=== PATIENT | female | born 1980 | race Caucasian/White ===

== ENCOUNTER → 2018-10-14 | Outpatient (CLI) | payer OTHER ==
--- NOTE | 2018-10-14 14:43 | US ---
EXAMINATION TYPE: US transvaginal DATE OF EXAM: 10/14/2018 COMPARISON: NONE CLINICAL HISTORY: Z97.5 Presence of (intrauterine device placement; ID placed 3 years ago; ; elizabeth ent has intermittent left pelvic pain, yesterday had right pelvic pain; left oophorectomy; C section x 2, no menses with IUD per patient; patient stated her physician could not locate string of IUD TECHNIQUE: TV US; Transvaginal sonographic images were medically necessary to better assess the fol lowing anatomy: IUD placement; patient's bladder not full and patient consented to TV US. Date of LMP: unknown with IUD EXAM MEASUREMENTS: Uterus: 7.4 x 5.5 x 3.2 cm Endometrial Stripe: 0.5 cm Right Ovary: 2.1 x 1.4 x 1.3 cm Left Ovary: surgically removed 1. Uterus: Anteverted 2. Endometrium: IUD appears within the lower uterine segment and cervix 3. Right Ovary: multiple follicles with largest follicular cyst =1.2 x 0.8 x 0.6cm 4. Left Ovary: surgically absent Spectral, color and waveform Doppler imaging shows good arterial and venous flow within the right o vary; there is no evidence for ovarian torsion. 5. Bilateral Adnexa: wnl 6. Posterior cul-de-sac: wnl IMPRESSION: Low-lying intrauterine device within the lower uterine segment and cervix.
--- NOTE | 2018-10-14 14:59 | MM ---
Reason for exam: screening (asymptomatic). Baseline mammogram. History: Family history of breast cancer in maternal grandmother. Taking hormonal contraceptives beginning at age 18. Physical Findings: Nurse did not find any significant physical abnormalities on exam. MG Screening Mammo w CAD Bilateral CC, MLO, and XCCL view(s) were taken. The breast tissue is extremely dense which could obscure a lesion on mammography. There are curvalinear right calcifications in the right upper inner quadrant at middle depth. These results were verbally communicated with the patient and result sheet given to the patient on 10/14/18. ASSESSMENT: Incomplete: need additional imaging evaluation, BI-RAD 0 RECOMMENDATION: Special view mammogram of the right breast.
--- NOTE | 2018-10-14 15:02 | MM ---
Reason for exam: additional evaluation requested from abnormal screening. History: Family history of breast cancer in maternal grandmother. Taking hormonal contraceptives beginning at age 18. Physical Findings: Breast exam preformed at baseline screening. MG Work Up Mamm w CAD RT CC with magnification and LM with magnification view(s) were taken of the right breast. The breast tissue is extremely dense which could obscure a lesion on mammography. There are coarse curvilinear calcifications in the right upper inner quadrant at middle depth that could be secretory on CC. 6 month follow up recommended. These results were verbally communicated with the patient and result sheet given to the patient on 10/14/18. ASSESSMENT: Probably benign, BI-RAD 3 RECOMMENDATION: Follow-up diagnostic mammogram of the right breast in 6 months.
== END | disposition home or self-care (01) ==
LOC: RADUSWWP 13:15
PROVIDERS: ATTEND Obstetrics & Gynecology
DX: Z12.31 Encounter for screening mammogram for malignant neoplasm of breast (principal); R92.8 Other abnormal and inconclusive findings on diagnostic imaging of breast; R10.2 Pelvic and perineal pain; Z97.5 Presence of (intrauterine) contraceptive device
CPT/HCPCS: 76830; 77065; 77067

== ENCOUNTER → 2018-11-04 | Outpatient (CLI) | payer OTHER ==
[2018-11-04 14:25] LABS: Basophils # (A) 0.1 k/uL (0-0.2); Basophils % (A) 1 %; Eosinophils # (A) 0.1 k/uL (0-0.7); Eosinophils % (A) 1 %; HCT 44.7 % (34.0-46.0); HGB 14.1 gm/dL (11.4-16.0); Lymphocytes # (A) 1.8 k/uL (1.0-4.8); Lymphocytes % (A) 21 %; MCH 29.5 pg (25.0-35.0); MCHC 31.6 g/dL (31.0-37.0); MCV 93.3 fL (80.0-100.0); Mean Platelet Volume 7.2; Monocytes # (A) 0.5 k/uL (0-1.0); Monocytes % (A) 5 %; Neutrophils % (A) 71 %; Platelet Count 260 k/uL (150-450); RBC 4.79 m/uL (3.80-5.40); RDW 13.1 % (11.5-15.5); WBC 8.5 k/uL (3.8-10.6)
== END | disposition home or self-care (01) ==
LOC: LABPAT 13:06
PROVIDERS: ATTEND Obstetrics & Gynecology
DX: Z01.812 Encounter for preprocedural laboratory examination (principal)
CPT/HCPCS: 36415; 85025

== ENCOUNTER 2018-11-11 06:06 | Day surgery (SDC) | payer OTHER ==
[2018-11-05 11:30] VITALS: BMI 20.5
[~2018-11-11 06:06] MED LIST: ceFAZolin IN SWFI 2 GM/20 ML SYRINGE IVP ONE
[2018-11-11] MEDS ORDERED: LACTATED RINGERS 1,000 ML IV SCH (06:13)
[2018-11-11] MEDS ORDERED: DEXAMETHASONE SOD PHOSPHATE 10 MG/ML 1 ML VIAL IV ONE (06:13)
[2018-11-11] MEDS ORDERED: ONDANSETRON 4 MG/2 ML VIAL IVP ONE (06:13)
[2018-11-11] MEDS ORDERED: LIDOCAINE 1% 20 ML VIAL (10MG/ML) FOR IV START INTRADERMA PRN (06:13)
[2018-11-11] MEDS ORDERED: HYDROmorphone 0.5 MG/0.5 ML SYRINGE IVP PRN (06:13)
[2018-11-11 06:29] VITALS: RESP 16
[2018-11-11 06:47] LABS: Glucose,Whole Blood 87 mg/dL (75-99)
[2018-11-11] MEDS ORDERED: LIDOCAINE 1% INJ 10MG/ML (20 ML MDV) ONE (07:25)
[2018-11-11] MEDS ORDERED: MIDAZOLAM 2 MG/2 ML VIAL ONE (07:25)
[2018-11-11] MEDS ORDERED: PROPOFOL 10 MG/ML 20 ML VIAL IV ONE (07:25)
[2018-11-11] MEDS ORDERED: KETOROLAC 30 MG/ML 1 ML VIAL ONE (07:25)
[2018-11-11 07:58] VITALS: TEMP 97
--- NOTE | 2018-11-11 08:01 | P.OP ---
Date of Procedure: 11/11/18 Preoperative Diagnosis: Retained IUD placement of new IUD Postoperative Diagnosis: Same Procedure(s) Performed: Exam under anesthesia with IUD removal and replacement Anesthesia: DARIN Surgeon: Irineo Jones Estimated Blood Loss (ml): 1 Pathology: none sent Condition: stable Disposition: same day Operative Findings: Normal anatomy Description of Procedure: Patient was taken to the operating suite where general anesthetic was found be adequate. She was prepped and draped in the normal sterile fashion and placed in the dorsal lithotomy position. Initially a weighted speculum was inserted into the vagina and the anterior lip of the cervix was identified and grasped with a Allis clamp. Cervix was then dilated. Polyp forceps was then used to remove the IUD, it was relatively high and strings were very difficult to reach. Once it was removed however uterus was sounded to 7.5 cm and a Kyleena IUD was inserted without difficulty. Patient was then taken to recovery room following removal of instruments. Sponge, lap and needle counts were all correct 2. Patient tolerated surgery very well. She will follow me in 4 weeks for evaluation. Plan - Discharge Summary Discharge Rx Participant: Yes New Discharge Prescriptions: No Action Venlafaxine HCl [Effexor] 37.5 mg PO DAILY Multivit with Calcium,Iron,Min [Women's Multivitamin] 1 each PO DAILY Discharge Medication List Multivit with Calcium,Iron,Min [Women's Multivitamin] 1 each PO DAILY 11/06/18 [History] Venlafaxine HCl [Effexor] 37.5 mg PO DAILY 11/06/18 [History] Follow up Appointment(s)/Referral(s): Irineo Jones DO [Doctor of Osteopathic Medicine] - 4 Weeks Activity/Diet/Wound Care/Special Instructions: Limited activity today. Continue normal activities tomorrow. Call for any severe pain, heavy bleeding, high temperatures Discharge Disposition: HOME SELF-CARE
[2018-11-11 08:42] VITALS: BP 102/69
[2018-11-11 09:17] VITALS: PULSE 75
== END 2018-11-11 09:25 | disposition home or self-care (01) ==
LOC: OR 06:06
PROVIDERS: ATTEND Obstetrics & Gynecology
DX: Z30.433 Encounter for removal and reinsertion of intrauterine contraceptive device (principal); N88.2 Stricture and stenosis of cervix uteri; F17.210 Nicotine dependence, cigarettes, uncomplicated; Z79.3 Long term (current) use of hormonal contraceptives; Z79.899 Other long term (current) drug therapy
CPT/HCPCS: 81025; 58301; 58300; J2250; J1100; J2405; J2001; J1885; J2704

== ENCOUNTER → 2019-03-25 | Outpatient (CLI) | payer OTHER ==
--- NOTE | 2019-03-25 15:46 | US ---
EXAMINATION TYPE: US pelvis complete transvag DATE OF EXAM: 03/25/2019 COMPARISON: NONE CLINICAL HISTORY: N83.0 ovarian cyst lt, Z97.5 IUD placement. IUD placement hx of ovarian cysts. TECHNIQUE: Transvaginal (TV) and Transabdominal (TA) EXAM MEASUREMENTS: Uterus: 6.4 x 3.7 x 5.2 cm Endometrial Stripe: .5 cm Right Ovary: 3.1 x 1.0 x 2.1 cm Left Ovary: obscured by bowel gas. 1. Uterus: Anteverted wnl 2. Endometrium: wnl 3. Right Ovary: wnl 4. Left Ovary: Obscured by overlying bowel gas 5. Bilateral Adnexa: wnl 6. Posterior cul-de-sac: wnl IUD appears in the lower uterine uterus near cervix. The uterus is noted to be severely anteflexed on the initial transabdominal images impressing upon the superior aspect of the urinary bladder. IMPRESSION: 1. Low-lying intrauterine displace despite replacement appearing in the lower uterine segment near th e cervix. The uterus is severely anteflexed on initial transabdominal images. Acute angle may cause m alpositioning of the intrauterine device. 2. Nonvisualization of the left ovary.
== END | disposition home or self-care (01) ==
LOC: RADUSWWP 14:18
PROVIDERS: ATTEND Obstetrics & Gynecology
DX: N83.02 Follicular cyst of left ovary (principal); Z97.5 Presence of (intrauterine) contraceptive device
CPT/HCPCS: 76830; 76856

== ENCOUNTER → 2019-05-07 | Outpatient (CLI) | payer OTHER ==
--- NOTE | 2019-05-07 12:00 | MM ---
Reason for exam: follow-up at short interval from prior study. Last mammogram was performed 7 months ago. History: Family history of breast cancer in maternal grandmother. Taking hormonal contraceptives beginning at age 18. Physical Findings: Nurse did not find any significant physical abnormalities on exam. MG Diagnostic Mammo RT w CAD CC and MLO view(s) were taken of the right breast. Prior study comparison: October 14, 2018, right breast MG work up mamm w CAD RT. October 14, 2018, bilateral MG screening mammo w CAD. The breast tissue is heterogeneously dense. This may lower the sensitivity of mammography. Punctate right sided calcifications. There is no discrete abnormality. These results were verbally communicated with the patient and result sheet given to the patient on 05/07/19. ASSESSMENT: Benign, BI-RAD 2 RECOMMENDATION: Return to routine screening mammogram schedule for both breasts. Back on schedule.
== END | disposition home or self-care (01) ==
LOC: RADMAMWWP 10:35
PROVIDERS: ATTEND Obstetrics & Gynecology
DX: R92.8 Other abnormal and inconclusive findings on diagnostic imaging of breast (principal)
CPT/HCPCS: 77065

== ENCOUNTER → 2019-06-25 | Outpatient (CLI) | payer OTHER ==
[2019-06-25 13:17] LABS: Basophils # (A) 0.1 k/uL (0-0.2); Basophils % (A) 2 %; Eosinophils # (A) 0.1 k/uL (0-0.7); Eosinophils % (A) 2 %; HCT 42.1 % (34.0-46.0); Lymphocytes # (A) 1.9 k/uL (1.0-4.8); Lymphocytes % (A) 28 %; MCH 30.6 pg (25.0-35.0); MCHC 33.2 g/dL (31.0-37.0); MCV 92.3 fL (80.0-100.0); Monocytes # (A) 0.4 k/uL (0-1.0); Monocytes % (A) 6 %; Neutrophils # (A) 4.1 k/uL (1.3-7.7); Neutrophils % (A) 61 %; Platelet Count 227 k/uL (150-450); RBC 4.56 m/uL (3.80-5.40); RDW 12.3 % (11.5-15.5); WBC 6.7 k/uL (3.8-10.6)
== END | disposition home or self-care (01) ==
LOC: LABPAT 12:39
PROVIDERS: ATTEND Obstetrics & Gynecology
DX: Z01.812 Encounter for preprocedural laboratory examination (principal)
CPT/HCPCS: 85025

== ENCOUNTER 2019-06-29 06:32 | Day surgery (SDC) | payer OTHER ==
[2019-06-24 14:49] VITALS: BMI 19.9
--- NOTE | 2019-06-26 17:04 | P.HPOB ---
History of Present Illness H&P Date: 06/26/19 Chief Complaint: Dysfunctional uterine bleeding/menorrhagia Ana is a 38-year-old female with a history of very heavy vaginal bleeding and significant pain since removal of her IUD. She is scheduled for a D&C with hysteroscopy and NovaSure procedure for same. Her pain is only with her menses and she relates she passes clots with each menses which worsens the pain. Risks/benefits/alternatives to this procedure were reviewed with the patient in detail all questions were answered for her prior to proceeding to the operating room. She is taking nonsteroidal anti-inflammatories worked or offering only minimal relief. Past Medical History Additional Past Medical History / Comment(s): Hypoglycemia. History of Any Multi-Drug Resistant Organisms: None Reported Past Surgical History: Section Additional Past Surgical History / Comment(s): X2, LEFT TUBE REMOVED. Past Anesthesia/Blood Transfusion Reactions: No Reported Reaction Past Psychological History: No Psychological Hx Reported Smoking Status: Former smoker Past Alcohol Use History: None Reported Additional Past Alcohol Use History / Comment(s): SMOKED 4-5 CIGARETTES/DAY, QUIT SMOKING FOR 10 YEARS AND RESTARTED, quit again 06/17/19. Past Drug Use History: None Reported - Past Family History Mother Family Medical History: No Reported History Medications and Allergies Home Medications Medication Instructions Recorded Confirmed Type Multivit with Calcium,Iron,Min 1 each PO DAILY 11/06/18 06/24/19 History [Women's Multivitamin] Allergies Allergy/AdvReac Type Severity Reaction Status Date / Time No Known Allergies Allergy Verified 06/24/19 14:34 Exam Osteopathic Statement: *. No significant issues noted on an osteopathic structural exam other than those noted in the History and Physical/Consult. - OBG Physical Exam Breast: both: normal (no masses) Abdomen: bowel sounds normal, no diffuse tenderness, no bruit present, no guarding noted, no hepatomegaly, no splenomegaly, no mass Vulva: both: normal Vagina: normal moisture, no discharge Cervix: no lesion, no discharge Uterus: normal size, normal contour Adnexa: both: normal Anus/Rectum: normal perianal skin, no rectal mass, no hemorrhoids, heme negative
[~2019-06-29 06:32] MED LIST changes: +DEXAMETHASONE SOD PHOSPHATE 10 MG/ML 1 ML VIAL IV ONE; +HYDROmorphone 0.5 MG/0.5 ML SYRINGE IVP PRN; +LACTATED RINGERS 1,000 ML IV SCH; +LIDOCAINE 1% 20 ML VIAL (10MG/ML) FOR IV START INTRADERMA PRN; +ONDANSETRON 4 MG/2 ML VIAL IVP ONE; +Pre Op ABX Message 1 EACH MISC MISCELLANE ONE; -ceFAZolin IN SWFI 2 GM/20 ML SYRINGE IVP ONE; +fentaNYL (PF) 50 MCG/ML 2 ML AMP IV PRN
[2019-06-29 07:22] VITALS: RESP 16
[2019-06-29 07:24] LABS: Glucose,Whole Blood 89 mg/dL (75-99)
[2019-06-29] MEDS ORDERED: LIDOCAINE 1% INJ 10MG/ML (20 ML MDV) ONE (07:28)
[2019-06-29] MEDS ORDERED: KETOROLAC 30 MG/ML 1 ML VIAL ONE (07:28)
[2019-06-29] MEDS ORDERED: PROPOFOL 10 MG/ML 20 ML VIAL IV ONE (07:28)
[2019-06-29] MEDS ORDERED: MIDAZOLAM 2 MG/2 ML VIAL ONE (07:28)
[2019-06-29] MEDS ORDERED: fentaNYL (PF) 50 MCG/ML 2 ML AMP ONE (07:28)
--- NOTE | 2019-06-29 08:01 | P.OP ---
Date of Procedure: 06/29/19 Preoperative Diagnosis: Dysfunctional uterine bleeding Postoperative Diagnosis: Same Procedure(s) Performed: D&C with hysteroscopy and NovaSure Anesthesia: DARIN Surgeon: Irineo Jones Estimated Blood Loss (ml): 5 Pathology: other (Uterine curettings) Condition: stable Disposition: same day Operative Findings: Pathology pending Description of Procedure: Ana was taken to the operating suite where a general anesthetic was found be adequate. She was prepped and draped in the normal sterile fashion and placed in dorsal lithotomy position. Initially a weighted speculum was inserted into the vagina and the anterior lip of the cervix identified and grasped with a single-tooth tenaculum. Cervix was then dilated and uterus sounded to 7 cm. Once this was completed camera was inserted with no gross pathology noted camera was removed and sharp curettings of the endometrium were obtained. This tissue was collected and placed on Telfa and sent to pathology for evaluation. Once this was completed NovaSure systems inserted with a length of 4 and a width of 2.5 it passes patency test it was enabled and burned for 47 seconds. At conclusion of this camera was reinserted and excellent burn was noted. All instruments were then removed. Sponge, lap, needle counts were all correct 2. Patient was then taken to the recovery room in stable and satisfactory condition. Plan - Discharge Summary Discharge Rx Participant: Yes New Discharge Prescriptions: New Ibuprofen [Motrin] 600 mg PO Q6HR PRN #30 tab PRN Reason: Pain No Action Multivit with Calcium,Iron,Min [Women's Multivitamin] 1 each PO DAILY Discharge Medication List Multivit with Calcium,Iron,Min [Women's Multivitamin] 1 each PO DAILY 11/06/18 [History] Ibuprofen [Motrin] 600 mg PO Q6HR PRN #30 tab 06/29/19 [Rx] Follow up Appointment(s)/Referral(s): Irineo Jones DO [Doctor of Osteopathic Medicine] - 2 Weeks Activity/Diet/Wound Care/Special Instructions: No heavy lifting, limit stairs and driving, and pelvic rest. If any high temperatures, heavy bleeding, or severe pain call my office
[2019-06-29 08:10] VITALS: TEMP 97
[2019-06-29 09:23] VITALS: BP 101/60; PULSE 58
== END 2019-06-29 09:46 | disposition home or self-care (01) ==
LOC: OR 06:32
PROVIDERS: ATTEND Obstetrics & Gynecology
DX: N93.8 Other specified abnormal uterine and vaginal bleeding (principal); N92.0 Excessive and frequent menstruation with regular cycle; E16.2 Hypoglycemia, unspecified; Z87.891 Personal history of nicotine dependence; Z98.51 Tubal ligation status; Z98.891 History of uterine scar from previous surgery
CPT/HCPCS: 81025; 88305; 58563; J2250; J1100; J2405; J2001; J3010; J1885; J2704

== ENCOUNTER 2019-11-25 09:16 | Day surgery (SDC) | payer OTHER ==
[2019-11-24 09:58] VITALS: BMI 20.2
[~2019-11-25 09:16] MED LIST changes: -DEXAMETHASONE SOD PHOSPHATE 10 MG/ML 1 ML VIAL IV ONE; -HYDROmorphone 0.5 MG/0.5 ML SYRINGE IVP PRN; -LIDOCAINE 1% 20 ML VIAL (10MG/ML) FOR IV START INTRADERMA PRN; -ONDANSETRON 4 MG/2 ML VIAL IVP ONE; -Pre Op ABX Message 1 EACH MISC MISCELLANE ONE; -fentaNYL (PF) 50 MCG/ML 2 ML AMP IV PRN
[2019-11-25 09:39] VITALS: RESP 16; TEMP 97.5
[2019-11-25] MEDS ORDERED: PROPOFOL 10 MG/ML 20 ML VIAL IV ONE (10:14)
[2019-11-25] MEDS ORDERED: LIDOCAINE 1% INJ 10MG/ML (20 ML MDV) ONE (10:14)
--- NOTE | 2019-11-25 10:29 | P.PCN ---
Date of Procedure: 11/25/19 Procedure(s) Performed: BRIEF HISTORY: Patient is a 39 year-old pleasant female scheduled for an elective colonoscopy as a part of variation of rectal bleeding for the last 2 years duration. She denies any change in bowel habits. No rectal bleeding. PROCEDURE PERFORMED: Colonoscopy. PREOPERATIVE DIAGNOSIS: Rectal pain for the last 2 years duration. IV sedation per Anesthesia. PROCEDURE: After informed consent was obtained, the patient, was brought into the endoscopy unit. IV sedation was administered by Anesthesia under continuous monitoring. Digital rectal examination was normal. No fissures identified. Initially the Olympus CF-160 flexible video colonoscope was then inserted in the rectum, gradually advanced into the cecum without any difficulty. Careful examination was performed as the scope was gradually being withdrawn. Ileocecal valve and the appendiceal orifice were visualized and appeared normal. Prep was excellent. Mucosa of the cecum, ascending colon, transverse colon, descending colon, sigmoid colon, and rectum appeared normal. Retroflexion was performed in the rectum and no lesions were seen. The patient tolerated the procedure well. IMPRESSION: Normal-appearing colon from rectum to cecum with no evidence of colitis or colorectal neoplasia. RECOMMENDATIONS: Findings of this examination were discussed with the patient as well as a family. She was advised to continue with a high-fiber diet and take fiber supplements a regular basis and use topical steroid creams as needed. She'll be seen in office in 2 weeks.
[2019-11-25 10:35] VITALS: PULSE 55
[2019-11-25 10:50] VITALS: BP 95/63
--- NOTE | 2019-11-27 08:28 | CDI ---
Outpatient Documentation Clarification Form Date: 11/27/19 CDS/Mixing Machine Tender [employer] Name: Miranda Moore Phone: If any questions, call Lorie Ragland Automotive Light Mechanic at [phone] Patient Name: Ana Dai Admit Date: 11/25/19 Discharge Date: 11/25/19 ATTENTION: The [facility] Coding Staff appreciate your assistance in clarifying documentation. Please respond to the clarification below the line at the bottom and electronically sign. The [facility] Coding staff will review the response and follow-up if needed. Please note: Queries are made part of the Legal Health Record. If you have any questions, please contact the Automotive Light Mechanic. Dear Dr. Knox Please provide clarification as to the diagnosis of rectal bleeding. The Operative report, under Procedure Performed has a statement that the colonoscopy was performed as part of a variation of rectal bleeding for the last 2 years. Then in another sentence under that heading it is stated No rectal bleeding. Please clarify Thank you for your kind consideration. MTDD
--- NOTE | 2019-12-04 09:53 | CDI ---
Outpatient Documentation Clarification Form Date: 12/04/19 CDS/[employer] Name: Miranda Moore Phone: If any questions, call Lorie Ragland Tankman at [phone] Patient Name: Ana Dai Admit Date: 11/25/19 Discharge Date: 11/25/19 ATTENTION: The [facility] Coding Staff appreciate your assistance in clarifying documentation. Please respond to the clarification below the line at the bottom and electronically sign. The [facility] Coding staff will review the response and follow-up if needed. Please note: Queries are made part of the Legal Health Record. If you have any questions, please contact the Tankman. Dear Dr. Knox Please provide clarification as to the diagnosis of rectal bleeding. The Operative report, under Procedure Performed has a statement that the colonoscopy was performed as part of a variation of rectal bleeding for the last 2 years. Then in another sentence under that heading it is stated No rectal bleeding. Please clarify Thank you for your kind consideration ___ Addendum done in [facility] [place] serge Knox MTDD
== END 2019-11-25 11:25 | disposition home or self-care (01) ==
LOC: ORWHC2ENDO 09:16 → MERGE 09:55 → ORWHC2ENDO 11:25
PROVIDERS: ATTEND Internal Medicine Gastroenterology
DX: K62.89 Other specified diseases of anus and rectum (principal); F17.210 Nicotine dependence, cigarettes, uncomplicated; Z98.51 Tubal ligation status; Z98.890 Other specified postprocedural states
CPT/HCPCS: 81025; 45378; J2001; J2704

== ENCOUNTER → 2023-12-13 | Outpatient (CLI) | payer OTHER ==
--- NOTE | 2023-12-17 10:27 | MM ---
Reason for Exam: Screening (asymptomatic). Last mammogram was performed 5 year(s) and 2 month(s) ago. Patient History: Menarche at age 15. First Full-Term at age 32. Late child-bearing (after 32). Hormonal Contraceptives, from age 18 until age 37. Maternal grandmother had breast cancer. Risk Values: Adrianna 5 year model risk: 0.8%. NCI Lifetime model risk: 13.5%. Prior Study Comparison: 10/14/2018 Bilateral Screening Mammogram, [facility]. 10/14/2018 Right Diagnostic Mammogram, [facility]. 05/07/2019 Right Diagnostic Mammogram, [facility]. Tissue Density: The breasts are heterogeneously dense, which may obscure small masses. Findings: Analyzed By CAD. There is no suspicious group of microcalcifications or new suspicious mass in either breast. Punctate benign-appearing calcifications. Overall Assessment: Benign, BI-RAD 2 Management: Screening Mammogram of both breasts in 1 year. . Patient should continue monthly self-breast exams. A clinical breast exam by your physician is recommended on an annual basis. This exam should not preclude additional follow-up of suspicious palpable abnormalities. Note on Adrianna scores and lifetime risk: 1. A Adrianna score greater than 3% is considered moderate risk. If this is the case, consider specialist referral to assess eligibility for a risk reducing agent. 2. If overall lifetime risk for the development of breast cancer is 20% or higher, the patient may qualify for future screening with alternating mammogram and breast MRI. Electronically signed and approved by: David Cardona M.D. Radiologis
== END | disposition home or self-care (01) ==
LOC: RADMAMWWP 15:39
PROVIDERS: ATTEND Pediatrics
DX: Z12.31 Encounter for screening mammogram for malignant neoplasm of breast (principal); Z80.3 Family history of malignant neoplasm of breast
CPT/HCPCS: 77067

== ENCOUNTER → 2024-11-25 | Outpatient (CLI) | payer OTHER ==
--- NOTE | 2024-11-25 12:26 | NM ---
EXAMINATION TYPE: NM gastric emptying static DATE OF EXAM: 11/25/2024 COMPARISON: NONE CLINICAL INDICATION: Female, 44 years old with history of R68.81 Early satiety; Following administration of 2.0 mCi Tc 99m Sulfur Colloid , projection images of the abdomen were obt ained 236 minutes post ingestion. Patient Emptying Values 1 Hour 40 % (normal 10-70%) 2 Hours 64 % (normal> 40%) 3 Hours 86 % (normal> 70%) 4 Hours 99 % (normal> 90%) Gastroesophagel reflux: None IMPRESSION: Gastric emptying: Normal Gastroesophageal reflux: None No scintigraphic evidence for gastroparesis. [facility], , 11/25/2024 12:23 PM
== END | disposition home or self-care (01) ==
LOC: RADNMMAIN 06:50
PROVIDERS: ATTEND Pediatrics
DX: R68.81 Early satiety (principal)
CPT/HCPCS: 78264; A9541

== ENCOUNTER → 2024-11-30 | Outpatient (CLI) | payer OTHER ==
--- NOTE | 2024-11-30 15:55 | FL ---
EXAMINATION TYPE: FL barium swallow DATE OF EXAM: 11/30/2024 3:45 PM COMPARISON: None. CLINICAL INDICATION: Female, 44 years old with history of R68.81 EARLY SATIETY, trouble swallowing so lids Total Fluoroscopy Time: 1 minute 18 seconds Total DAP: 50 mGycm2 36 images obtained. FINDINGS: The swallowing mechanism is normal and hypopharyngeal anatomy is preserved. The cervical and thoracic portions have a normal course and caliber and normal motility. The mucosa is normal and no persistent filling defect is encountered. There is a tiny hiatal hernia present. No gastroesophageal reflux is identified during the course of the exam. Valsalva and positional maneuvers were utilized. IMPRESSION: 1. Tiny hiatal hernia. 2. No gastroesophageal reflux or other specific abnormality seen. [facility], , 11/30/2024 3:53 PM
== END | disposition home or self-care (01) ==
LOC: RADFLMAIN 14:56
PROVIDERS: ATTEND Pediatrics
DX: R68.81 Early satiety (principal); K44.9 Diaphragmatic hernia without obstruction or gangrene
CPT/HCPCS: 74220